=== PATIENT ===

== ENCOUNTER 2024-10-16 08:06 | Emergency (ER) | payer MEDICAID ==
[2024-10-16] MEDS: ibuPROFEN 100 MG/5 ML SUSP UDCUP PO ONE (08:41)
[2024-10-16] MEDS: ibuPROFEN 100 MG/5 ML SUSP UDCUP ONE (08:42)
--- NOTE | 2024-10-16 08:45 | ERN ---
ED Note History of Present Illness Stated Complaint: FEVER, TONGUE BLISTER, FUSSY, CONSTIPATION Chief Complaint: Multiple Complaints Time Seen by MD: 08:20 Dictation: This generally healthy 1-year-old child is brought in by his mother due to difficulty feeding secondary to evidence of oral pain Child became sick two days ago with fever and drooling and fussy behavior. He was treated with Tylenol and Motrin in the fever resolved yesterday but he continues to be fussy and cry when he tries to take the bottle with drooling. Mother looked in his mouth and saw a sore on the tip of his tongue. There was no generalized rash, no cough or vomiting, and no treatment with pain meds or antipyretics today. The child started drinking regular milk one-week ago due to his one year birthday and mom has noted a little bit of constipation since then. The child had RSV two weeks ago with the symptoms have cleared completely. She has been giving Pedialyte. Child was born term and is followed by . There were no sick contacts in the home but all the kids have a cough. Allergies: Coded Allergies: No Known Drug Allergies (Unverified Allergy, Unknown, 10/16/24) Past Medical History Past Medical History: No Pertinent History Surgical History: None Review of System Dictation All pertinent systems reviewed, negative except as documented in the HPI The ROS is obtained from mother GENERAL/CONSTITUTIONAL: Negative except as documented in HPI. ENT: Negative except as documented in HPI. CARDIOVASCULAR: Negative except as documented in HPI. RESPIRATORY: Negative except as documented in HPI. GASTROINTESTINAL: Negative except as documented in HPI. GENITOURINARY: Negative except as documented in HPI. MUSCULOSKELETAL: Negative except as documented in HPI. SKIN: Negative except as documented in HPI. NEUROLOGIC: Negative except as documented in HPI. Initial Vital Sign VS Vital Signs Date Time Temp Pulse Resp B/P (MAP) Pulse Ox O2 Delivery O2 Flow Rate FiO2 10/16/24 08:07 98.6 126 28 98 Room Air Physical Exam Dictation Constitutional: The patient is a well developed, well nourished child who is fussy but awake, alert, and cooperative with no acute distress. Head/Face: Normocephalic, Atraumatic. Eyes: Pupils equal, and round. Lids and lashes normal. Conjunctiva not injected, sclera anicteric. Periorbital areas with no swelling, redness, or edema. ENT: No nasal discharge, no septal abnormalities noted. Tympanic membranes are normal and external auditory canals are clear. Oropharynx child is drooling actively, he is teething his front incisors above and below. There are shallow ulcers present on the tip of the tongue and over the tonsils bilaterally. There was no edema. Neck: Trachea midline, no masses palpated. No significant cervical lymphadenopathy. Supple, full range of motion without nuchal rigidity, meningismus or vertebral point tenderness. Chest/Axilla: Normal symmetrical motion. No bruising. No tenderness. No crepitus. No axillary masses or tenderness. Cardiovascular: Normal rate. Regular rhythm. Normal heart sounds. No murmurs, or rubs. No edema or cyanosis. Respiratory: Lungs have equal breath sounds bilaterally. No rales, rhonchi, or wheezes noted. No increased work of breathing. No retractions or nasal flaring. Abdomen: Soft, non-tender with normal bowel sounds. No distention. No guarding, rebound, or rigidity. No palpable masses or evidence of tenderness with deep palpation. Back: No spinal tenderness. No bruises. No costovertebral tenderness. Full range of motion. : deferred MS/Extremity: Full, normal range of motion. No external signs of trauma. No tenderness or swelling. Skin: Warm and dry with normal turgor. Capillary refill <2 seconds. Color normal. No external signs of trauma. There was no rash over the trunk, extremities palms or soles. Neuro: Awake and alert, mentation appropriate for age. Cranial nerves II-XII grossly intact. Motor strength 5/5 in all extremities. Sensory grossly intact. Psych: Behavior, mood, response, and affect are appropriate for age. Results (Laboratory/Radiology) Laboratory/Radiology Laboratory Tests Test 10/16/24 08:39 Group A Streptococcus Rapid negative (NEGATIVE) Labs Reviewed?: Yes ED Course ED Course Orders Procedure Category Date Status Time Ibuprofen 100mg/5ml PHA 10/16/24 Complete Susp Udcup (Motrin/A 09:00 Rapid (Group A Strep) LAB 10/16/24 Complete 08:35 Ibuprofen 100mg/5ml PHA 10/16/24 Complete Susp Udcup (Motrin/A 08:36 Current Medications Medications (Trade) Dose Ordered Sig/Misha Route PRN Reason Start Time Stop Time Status Last Admin Dose Admin Ibuprofen (moTRIN/ADVIL 100 MG/5 ML SUSP UDCUP) 100 mg ONCE ONCE PO 10/16/24 09:00 10/16/24 09:01 DC 10/16/24 08:41 Ibuprofen (moTRIN/ADVIL 100 MG/5 ML SUSP UDCUP) 100 mg STK-MED ONCE .ROUTE 10/16/24 08:36 10/16/24 08:37 DC Vital Signs Date Time Temp Pulse Resp B/P (MAP) Pulse Ox O2 Delivery O2 Flow Rate FiO2 10/16/24 08:07 98.6 126 28 98 Room Air Medical Decision Making MDM INITIAL IMPRESSION Initial history and physical concerning for ulcerative pharyngitis, good hydration, likely viral in etiology The child did switch to milk recently but this does not have features of allergy Contributing medical problems: Recent RSV but no chronic medical illnesses. I have reviewed the triage nursing notes and vital signs. The patient is afebrile with acceptable oxygen saturation, heart rate and blood pressure. Initial plan: Symptomatic therapy, strep screening DATA REVIEW I have reviewed additional NN, repeat VS, and monitoring where indicated. Heart rate, blood pressure, and O2 saturation are acceptable. [facility] diagnostic results: Strep swab negative Other independent historian: Mother gave all of the history Review of external data: None. ED COURSE Interventions: Ibuprofen for pain control Reassessment: After the ibuprofen the child was able to take a full serving of jello and fall asleep. DISPOSITION Final diagnostic impression: Ulcerating pharyngitis I discussed my findings, clinical impression and treatment recommendations with the patient's mother. I have reviewed the social factors contributing to the patient's presentation and disposition planning. My final plan for disposition was made based upon clinical findings, response to treatment and discussion with the patient's mother regarding management options. Hospitalization is not indicated due to low risk of short term progression, complication, morbidity or mortality related to the current diagnosis At the time of discharge, the vital signs are within acceptable limits. Repeat examination: Sleeping quietly Patient has been able to take oral liquids. The discharge treatment plan includes ibuprofen for pain control and aggressive hydration I have reviewed home management to prevent dehydration and control pain as well as anticipated course of the illness Incidental findings discussed: none Questions were invited and answered in layman's terms. I have emphasized my follow-up recommendations and reviewed ED return precautions. I have answered any questions in layman's terms. The patient understands that they will have to arrange for out-patient follow-up for recheck of today's condition. The patient is stable and appropriate for discharge from the ED. This dictation was prepared using [employer] voice recognition software. Occasional voice recognition errors may occur. When identified, these errors have been corrected. While every attempt is made to correct errors during dictation, errors may still exist. DX & DISP Disposition: Discharge Decision to Admit Date: Oct 16, 2024 Decision to Admit Time: 09:14 Departure Impression: Primary Impression: Acute ulcerative pharyngitis Condition: Stable Additional Instructions: Avoid spicy, salty, and sour foods and drinks. Offer frequent fluids and soft bland foods. Encourage good oral hygiene with fresh water following food intake Use ibuprofen 1 tsp every 6 hours for pain control. Watch for dehydration. Expect him to be sick for about a week. See your physician if he does not seem to be responding well. Return to the emergency department for any significant worsening Referrals: GRADY MICHELLE MD (PCP) MOODY ESCAMILLA MD Oct 16, 2024 08:45
[2024-10-16 09:40] VITALS: TEMP 98.2
== END 2024-10-16 10:46 | disposition home or self-care (01) ==
LOC: EDH 08:06
DX: J02.9 Acute pharyngitis, unspecified (principal)
CPT/HCPCS: 87880; 99283